=== PATIENT | female | born 1940 | race Caucasian/White ===

== ENCOUNTER 2019-04-29 01:03 | Emergency (ER) | payer MEDICARE ==
[~2019-04-29] VITALS: Ht 134.6 cm; Wt 79.4 kg
--- NOTE | ~2019-04-29 | EKG ---
[place], [place] ELECTROCARDIOGRAM REPORT NAME: KAELYN DELGADO UNIT #: [id number] ROOM: DOCTOR: EPIPHANY DRAFT REPORT BIRTHDATE: [birth year] [facility] Test Date: 2019-04-29 Test Time: 01:08:33 Pat Name: KAELYN DELGADO Department: Room: Gender: F [employer]: : 1940 Requested By: NITIN MURDOCK Order Number: [id number] Reading MD: Zander Mckeon MD Measurements Intervals Badger Rate: 75 P: -2 MD: 169 QRS: 13 QRSD: 90 T: 33 QT: 397 QTc: 444 Interpretive Statements Sinus rhythm Anteroseptal infarct, old Electronically Signed On 05-02-2019 8:07:58 PDT by Zander Mckeon MD CM:EKGRPT:ELECTROCARDIOGRAM REPORT [id number] NITIN GUTIERREZ DRAFT REPORT NITIN MURDOCK DO
[2019-04-29] MEDS ORDERED: ATENOLOL50 M1 PO (01:20)
[2019-04-29] MEDS ORDERED: POTASSIUM CHLO20 ME4 PO (01:20)
[2019-04-29] MEDS ORDERED: Zestril,Prinivi40 MG PO (01:20)
[2019-04-29] MEDS ORDERED: LEVOTHYROXINE125 MCG PO (01:20)
[2019-04-29] MEDS ORDERED: ASPIRIN ADULT L81 M1 PO (01:21)
[2019-04-29 01:22] LABS: BASO % 0.4 % (0.0-1.0); EOS # 0.2 10*3/uL (0.0-0.4); HEMATOCRIT 40.8 % (37.0-47.0); HEMOGLOBIN 13.3 g/dl (12.0-16.0); LYMPH # 2.2 10*3/uL (1.3-4.4); LYMPH % 24.1 % (27.0-41.0); MEAN CELL VOLUME 90.7 fl (81.0-99.0); MEAN CORPUSCULAR HGB 29.6 pg (27.0-31.0); MEAN CORPUSCULAR HGB CONC 32.6 g/dl (33.0-37.0); MEAN PLATELET VOLUME 10.2 fl (9.6-12.3); MONO # 0.7 10*3/uL (0.1-1.0); MONO % 7.5 % (3.0-9.0); NEUT % 65.7 % (47.0-73.0); PLATELET COUNT AUTOMATED 264 10*3/uL (130-400); RED CELL DISTRI WIDTH 12.9 % (0-14.5); WHITE BLOOD COUNT 9.2 10*3/uL (4.8-10.8)
[2019-04-29 01:37] LABS: ACT PARTIAL THROMBO TIME 23.9 SECONDS (20.0-32.1); INTERNATIONAL NORM RATIO 0.9 (2.0-3.5)
[2019-04-29 01:41] LABS: ALBUMIN 4.3 gm/dl (3.1-4.5); ALKALINE PHOSPHATASE 99 U/L (45-117); BUN 20 mg/dl (7-24); CHLORIDE 109 mmol/L (98-107); CREATININE 1.16 mg/dL (0.55-1.02); POTASSIUM 3.5 mmol/L (3.5-5.1); SGOT/AST 16 IU/L (3-35); SGPT/ALT 21 U/L (12-78); SODIUM 144 mmol/L (136-145); TOTAL PROTEIN 7.5 gm/dL (6.4-8.2)
[2019-04-29 01:42] LABS: TROPONIN I < 0.015 ng/ml (<0.045)
[2019-05-02] MEDS ORDERED: ATIVAN1 MG PO (10:55)
== END 2019-04-29 03:49 | disposition home or self-care (01) ==
LOC: ED 01:03
PROVIDERS: Emergency Medicine
DX: F41.9 Anxiety disorder, unspecified (principal); Z79.899 Other long term (current) drug therapy; Z79.82 Long term (current) use of aspirin

== ENCOUNTER → 2023-10-14 | Outpatient (CLI) | payer MEDICARE ==
[~2023-10-14] MED LIST: ASPIRIN ADULT L81 M1 PO; ATENOLOL50 M1 PO; ATIVAN1 MG PO; LEVOTHYROXINE125 MCG PO; POTASSIUM CHLO20 ME4 PO; Zestril,Prinivi40 MG PO
== END | disposition home or self-care (01) ==
LOC: MRI 00:46
PROVIDERS: ATTEND Specialist
DX: I67.89 Other cerebrovascular disease (principal); H90.3 Sensorineural hearing loss, bilateral; H74.8X1 Other specified disorders of right middle ear and mastoid